=== PATIENT | female | born 1960 | race Caucasian/White ===

== ENCOUNTER 2019-01-21 12:30 | Outpatient (CLI) | payer MEDICARE, MEDICAID ==
--- NOTE | 2019-01-21 17:28 | RAD ---
LUMBAR SPINE THREE VIEWS: 01/21/19 No acute fracture was seen. There is some disc space narrowing at L4-L5 and there is facet arthritis at this level as well. Some facet arthritis is suggested at L5-S1 also. There is slight anterolisthes is of L5 on S1 that is probably due to the arthritis. All vertebrae appear intact. No bony destructiv e lesions are seen. The SI joints are symmetrical. IMPRESSION: Slight disc space narrowing at L4-L5 with degenerative facet changes at L5 through S1. Cross-sectiona l imaging would be helpful in determining any neural impingement. POS: HOME
--- NOTE | 2019-01-21 17:30 | RAD ---
LEFT HAND THREE VIEWS: 01/21/19 No fracture was seen. I see no bony erosions. The carpal relationships are normal. There is a little narrowing of the space between the distal pole of the scaphoid and the trapezium and trapezoid. There is some narrowing between the latter two bones as well. The IP joints of the fingers were unremarkab le except for some minor arthritic changes in the IP joint of the thumb. IMPRESSION: Very mild degenerative changes as noted. See above. POS: HOME
--- NOTE | 2019-01-21 17:33 | RAD ---
LEFT KNEE FOUR VIEWS: 01/21/19 There is some very minor medial joint space narrowing and some small osteophytes medially. The findin gs are not excessive at this point. There is no fracture or joint effusion. IMPRESSION: Very minor medial compartment arthritis. POS: HOME
--- NOTE | 2019-01-21 17:33 | RAD ---
RIGHT HAND THREE VIEWS: 01/21/19 As in the left hand, there is some narrowing of the space between the scaphoid and trapezium and trap ezoid, as well as some narrowing between the latter two bones. The other carpal relationships seem mo re normal. No bony erosions are seen in the MCP joints. The IP joints were unremarkable. IMPRESSION: Degenerative changes in some of the radial side intercarpal joints as noted. POS: HOME
--- NOTE | 2019-01-21 17:43 | RAD ---
RIGHT KNEE FOUR VIEWS 01/21/19 There is some very slight joint space narrowing medially. There seems to be some calcification of the medial meniscus. Additionally, there is a collection of calcifications noted in the posterior centra l portion of the joint. They seem a little more posterior than the location of the posterior collater al ligament. I do not see any bony erosions or excavations to think that they are loose bodies. Small synovial chondromas would be in the differential. An MRI would be potentially helpful. No fracture o r large joint effusion was seen. IMPRESSION: 1. Slight joint space narrowing and mild calcification of the medial meniscus. 2. Group of calcifications in the central portion of the joint posteriorly. See above. POS: HOME
== END 2019-01-21 12:31 | disposition home or self-care (01) ==
LOC: BURRAD 12:30
DX: M17.0 Bilateral primary osteoarthritis of knee (principal); M06.4 Inflammatory polyarthropathy; M51.35 Other intervertebral disc degeneration, thoracolumbar region; M25.861 Other specified joint disorders, right knee
CPT/HCPCS: 72100